=== PATIENT | male | born 1970 | race Caucasian/White ===

== ENCOUNTER 2020-09-25 19:18 | Inpatient (IN) | payer OTHER, SELFPAY ==
--- NOTE | 2020-09-25 20:46 | HP ---
CHIEF COMPLAINT: Abdominal pain. HISTORY OF PRESENT ILLNESS: This is a male who is transferred over from [facility]. He has a 1-day history of lower abdominal cramping and pain. The pain is sharp, 8/10, does not radiate, associated with nausea and no vomiting. He notes subjective fever and chills. CT scan over there revealed evidence of diverticulitis with perforation. He has scattered free air in his abdomen. He was hemodynamically stable. He denies previous history of diverticulitis. No previous history of colonoscopy. PAST MEDICAL HISTORY: He denies. PAST SURGICAL HISTORY: He denies. MEDICATIONS: Taken daily, none. ALLERGIES: NO KNOWN DRUG ALLERGIES. SOCIAL HISTORY: No smoking. No alcohol. No other drugs. He is . REVIEW OF SYSTEMS: Ten-system review of systems is otherwise negative unless described above. PHYSICAL EXAMINATION: VITAL SIGNS: His pulse is 84. His blood pressure is 130/78. His temperature is 101. HEENT: Sclerae are anicteric. Oropharynx is clear. NECK: No lymphadenopathy. CHEST: Clear. HEART: Regular rate. ABDOMEN: Soft, diffusely tender with more lower abdominal guarding. No abdominal or inguinal hernias. EXTREMITIES: No ischemia or edema to extremities. LABORATORY DATA: White blood cell count is 16, hemoglobin 14, platelet count is 225. Creatinine is 1.09. IMAGING STUDIES: CT scan reveals scattered free air diverticulitis. ASSESSMENT: Acute diverticulitis with rupture with diffuse free air, although no significant free air under the diaphragm. No significant abscess or free fluid in the abdomen. Hemodynamically stable. PLAN: Sigmoid colectomy and colostomy. He is fairly tender on exam. I suspect he has more diffuse peritonitis. We will start Marie renteria. Plan operation tomorrow. Job ID: [id number]
[2020-09-25] MEDS ORDERED: Dextrose 50% Abboject 50 ML SYRINGE SLOW IVP PRN (20:54)
[2020-09-25] MEDS ORDERED: Ketorolac Tromethamine 30 MG/ML VIAL IVP PRN (20:54)
[2020-09-25] MEDS ORDERED: Dextrose 5% in Water 1,000 ML IV PRN (20:54)
[2020-09-25] MEDS ORDERED: Acetaminophen 325 MG TAB PO PRN (20:54)
[2020-09-25] MEDS ORDERED: Promethazine HCl 25 MG/ML VIAL IM PRN (20:54)
[2020-09-25] MEDS ORDERED: hydrALAZINE 20 MG/ML VIAL SLOW IVP PRN (20:54)
[2020-09-25] MEDS ORDERED: Fentanyl 100 MCG/2 ML VIAL SLOW IVP PRN (20:55)
[2020-09-25] MEDS ORDERED: Famotidine/PF 20 mg/2ml Vial ONE (21:52)
[2020-09-25] MEDS ORDERED: Acetaminophen 325 MG TAB ONE (21:52)
[2020-09-25] MEDS ORDERED: Fentanyl 100 MCG/2 ML VIAL ONE (21:52)
[2020-09-25] MEDS: Ondansetron PF 4 MG/2 ML Vial IVP PRN (23:53)
[2020-09-25] MEDS: Piperacillin/Tazobactam 3.375 GM in Sodium Chloride 0.9% 100 ML IVPB SCH (23:54)
[2020-09-26] MEDS: Famotidine/PF 20 mg/2ml Vial SLOW IVP SCH ×3 (00:20→21:38)
[2020-09-26] MEDS: Famotidine 20 MG TAB PO SCH ×3 (00:20→19:56)
[2020-09-26] MEDS: Sodium Chloride 0.9% 1,000 ML IV SCH ×3 (00:20→18:06)
[2020-09-26 00:59] LABS: SARS-CoV-2 NAA Rapid Test Not Detected (NotDetected)
[2020-09-26 01:16] VITALS: BMI 31.1
[2020-09-26] MEDS: Fentanyl 100 MCG/2 ML VIAL SLOW IVP PRN ×2 (03:31→05:53)
[2020-09-26] MEDS: Piperacillin/Tazobactam 3.375 GM in Sodium Chloride 0.9% 100 ML IVPB SCH ×3 (05:05→18:09)
[2020-09-26] MEDS: Ondansetron PF 4 MG/2 ML Vial IVP PRN (05:10)
[2020-09-26] MEDS ORDERED: Ketorolac Tromethamine 30 MG/ML VIAL ONE (08:48)
[2020-09-26] MEDS ORDERED: PROPOFOL 200 MG/20 ML VIAL ONE (08:48)
[2020-09-26] MEDS ORDERED: Ondansetron PF 4 MG/2 ML Vial ONE (08:48)
[2020-09-26] MEDS ORDERED: Dexamethasone 20 MG/5 ML VIAL ONE (08:48)
[2020-09-26] MEDS ORDERED: Succinylcholine 200 MG/10 ml SYRINGE FS ONE (08:48)
[2020-09-26] MEDS ORDERED: Rocuronium Bromide 10 MG/ML (10ML VIAL) ONE (08:48)
[2020-09-26] MEDS ORDERED: diphenhydrAMINE 50 MG/ML VIAL ONE (08:48)
[2020-09-26] MEDS ORDERED: Glycopyrrolate 0.2 MG/ML 5 ML SYRINGE ONE (08:48)
[2020-09-26] MEDS ORDERED: Piperacillin/Tazobactam 3.375 GM VIAL ONE (11:13)
[2020-09-26] MEDS ORDERED: Fentanyl 250 MCG/5 ML VIAL ONE (11:21)
[2020-09-26] MEDS ORDERED: Meperidine HCl/PF 25 MG/ML VIAL SLOW IVP PRN (13:21)
[2020-09-26] MEDS ORDERED: Ondansetron HCl/PF 4 MG/2 ML Vial IVP PRN (13:21)
[2020-09-26] MEDS ORDERED: HYDROmorphone 2 MG/ML VIAL SLOW IVP PRN (13:21)
[2020-09-26] MEDS ORDERED: Ketorolac Tromethamine 30 MG/ML VIAL IVP PRN (13:21)
[2020-09-26] MEDS ORDERED: Fentanyl 100 MCG/2 ML VIAL ONE ×2 (14:21→14:39)
[2020-09-26] MEDS ORDERED: hydrALAZINE 20 MG/ML VIAL SLOW IVP PRN (15:19)
[2020-09-26] MEDS ORDERED: Promethazine HCl 25 MG/ML VIAL IM PRN ×3 (15:19→15:58)
[2020-09-26] MEDS ORDERED: Ondansetron PF 4 MG/2 ML Vial IVP PRN ×2 (15:19→15:48)
[2020-09-26] MEDS: D5 1/2 NS w/20 mEq KCL 1,000 ML IV SCH (15:29)
[2020-09-26] MEDS ORDERED: Naloxone HCl 0.4 mg/ml Vial IV PRN ×2 (15:48→15:58)
[2020-09-26] MEDS ORDERED: fentaNYL Citrate/PF 2,000 MCG in Sodium Chloride 0.9% 60 ML IV PRN ×2 (15:48→15:58)
[2020-09-26] MEDS ORDERED: diphenhydrAMINE 50 MG/ML VIAL IM PRN ×2 (15:48→15:58)
[2020-09-26] MEDS ORDERED: Zolpidem Tartrate 5 MG TAB PO PRN ×2 (15:48→15:58)
[2020-09-26] MEDS ORDERED: diphenhydrAMINE 50 MG/ML VIAL IVP PRN ×2 (15:48→15:58)
[2020-09-26] MEDS ORDERED: diphenhydrAMINE 25 MG CAP PO PRN ×2 (15:48→15:58)
[2020-09-26] MEDS ORDERED: Communication Order-Pharmacy FS SCH ×2 (16:00)
--- NOTE | 2020-09-26 19:07 | OP ---
DATE OF PROCEDURE: 09/26/2020 PREOPERATIVE DIAGNOSIS: Ruptured sigmoid diverticulitis. POSTOPERATIVE DIAGNOSIS: Ruptured sigmoid diverticulitis. PROCEDURE PERFORMED: Sigmoid colectomy with colostomy. ANESTHESIA: General. ESTIMATED BLOOD LOSS: 100 mL. COMPLICATIONS: None. FINDINGS: Sigmoid perforation. TECHNIQUE: The patient was taken to the operating room and laid supine on the operating room table. After general anesthetic was obtained, a Zuñiga was placed. His abdomen was shaved, prepped, and draped in a sterile fashion. A midline incision was made. Bookwalter retractor was placed. Left colon mobilized along the white line of Toldt. Left ureter found excluded from the dissection. There was locally inflammatory change in the sigmoid colon perforation. There was diffuse peritonitis. Contour stapler was fired across the lower sigmoid, reload was fired across above the area of perforation. The mesentery was taken using Impact LigaSure. There was no bleeding. Specimen was sent to Path. The abdomen was irrigated using multiple liters of warm sterile solution until returns were clear. There was some small bowel stuck to the sigmoid colon; however, there was no damage to this during the dissection. No bleeding in the abdomen. The left colon had been mobilized to allow the colostomy segment to reach up. Ellipse of skin taken out in the left abdomen and the colostomy segment brought up and held in place using a [place]. Prolene was used to ban the rectal stump. Seprafilm placed on top of the rectal stump. Seprafilm placed over the abdominal viscera. The midline fascia was closed using #1 PDS from the top and the bottom and tied in the middle. Subcutaneous tissues were irrigated. Skin was closed using skin tawanna. Telfa marcio were placed in between. The colostomy was matured in the usual fashion using 3-0 Vicryl and colostomy device was placed. The patient was en route to Recovery in stable condition. All instrument counts, needle counts, and lap counts were correct. Job ID: [id number]
[2020-09-26] MEDS: Enoxaparin Sodium 40 MG/0.4 ML SYRINGE SC SCH (19:56)
[2020-09-27] MEDS: D5 1/2 NS w/20 mEq KCL 1,000 ML IV SCH ×3 (00:10→17:55)
[2020-09-27] MEDS: Piperacillin/Tazobactam 3.375 GM in Sodium Chloride 0.9% 100 ML IVPB SCH ×4 (00:10→17:45)
[2020-09-27] MEDS: Ondansetron PF 4 MG/2 ML Vial IVP PRN ×3 (00:14→13:24)
[2020-09-27 05:37] LABS: #Lymphocytes 0.9 thou/uL (1.20-3.40); #Monocytes 0.8 thou/uL (0.11-0.59); #Neutrophils 10.6 thou/uL (1.40-6.50); %Basophils 0.1 % (0.0-1.0); %Eosinophils 0.1 % (0.0-10.0); %Lymphocytes 7.1 % (21.0-51.0); %Monocytes 6.4 % (0.0-10.0); %Neutrophils 86.4 % (42.0-75.0); Hemoglobin 11.2 g/dL (14.0-18.0); Mean Corpuscular HGB CONC 32.9 g/dL (32.0-36.0); Mean Corpuscular Hemoglobin 29.8 pg (27.0-31.0); Mean Corpuscular Volume 90.6 fL (78.0-98.0); Mean Platelet Volume 8.6 fL (7.4-10.4); Platelet Count 200 thou/uL (130-400); RBC Distribution Width 11.8 % (11.5-14.5); Red Blood Cell (RBC) Count 3.75 mill/uL (4.70-6.10); White Blood Cell (WBC) Count 12.3 thou/uL (4.8-10.8)
[2020-09-27 05:55] LABS: Anion Gap 9 mmol/L (10-20); BUN (Urea Nitrogen) 18 mg/dL (8.9-20.6); Calc. Creatinine Clearance 121 mL/min (70-130); Calcium 8.4 mg/dL (7.8-10.44); Carbon Dioxide 24 mmol/L (22-29); Chloride 107 mmol/L (98-107); Glucose 144 mg/dL (70-105); Potassium 4.3 mmol/L (3.5-5.1); Sodium 136 mmol/L (136-145)
--- NOTE | 2020-09-27 07:48 | PDOC.GSPN ---
Surgery Progress Note: Subj - Subjective Patient reports: positive flatus, tolerating liquids well, voiding w/o difficult y, pain is less, still having pain Narrative: Mr. Jaquez is a 49-year-old male who is post op day 1 from a sigmoid colectomy with colostomy. He is still having pain (11/03) but he reports that this is better than yesterday; his pain is controlled well with the pain medications. Last night he reported significant bloating, and he still is having this today, but it is better. He has ambulated some, but not much due to the pain. He is tolerating liquids well. Surgery Progress Note: Obj - Vital signs Vital signs: Vital Signs - Most Recent Temp Pulse Resp BP Pulse Ox 98.6 F 88 18 117/72 95 09/27/20 03:08 09/27/20 03:08 09/27/20 03:08 09/27/20 03:08 09/27/20 03:08 - Physical Exam General: well developed, well nourished, moderate pain Cardiovascular: regular rate and rhythm Respiratory: clear to auscultation, breath sounds present Abdomen: soft, positive bowel sounds, appropriately tender, distended Wound: dressing clean,dry,intact, healing well, ostomy/colostomy (serous fluid drainage in bag) Surgery Progress Note: Results - Labs Result Diagrams: 09/27/20 05:17 09/27/20 05:17 Lab results: Laboratory Results - last 12 hr 09/27/20 09/27/20 05:17 05:17 WBC 12.3 H RBC 3.75 L Hgb 11.2 L Hct 34.0 L MCV 90.6 MCH 29.8 MCHC 32.9 RDW 11.8 Plt Count 200 MPV 8.6 Neutrophils % 86.4 H Lymphocytes % 7.1 L Monocytes % 6.4 Eosinophils % 0.1 Basophils % 0.1 Neutrophils # 10.6 H Lymphocytes # 0.9 L Monocytes # 0.8 H Eosinophils # 0.0 Basophils # 0.0 Sodium 136 Potassium 4.3 Chloride 107 Carbon Dioxide 24 Anion Gap 9 L BUN 18 Creatinine 1.16 Estimated GFR (MDRD) 67 Glucose 144 H Calcium 8.4 Surgery Progress Note: A/P - Problem (1) Perforation of sigmoid colon due to diverticulitis Current Visit: Yes Code(s): K57.20 - DVTRCLI OF LG INT W PERFORATION AND ABSCESS W/O BLEEDING Status: Acute - Plan Plan: Mr. Jaquez is doing better. He is tolerating liquids well and his pain is well controlled with current medication. Encouraged him to ambulate as tolerated to help with the gas and bloating. Will continue current medication regimen. Addendum - Physician - Physician Attestation Date/Time: 09/27/20 2988 I personally performed or re-performed the physical examination and medical d ecision making. I have verified all student documentation or findings, including history, physical exam and/or medical decision making. Bloated with some nausea. Hasn't ambulated today. I expect some bloating given the amount of peritonitis.
[2020-09-27] MEDS: Famotidine 20 MG TAB PO SCH ×2 (09:06→20:35)
[2020-09-27] MEDS: Famotidine/PF 20 mg/2ml Vial SLOW IVP SCH (09:10)
[2020-09-27] MEDS: Ketorolac Tromethamine 30 MG/ML VIAL IVP PRN ×2 (13:19→20:35)
[2020-09-27] MEDS: Enoxaparin Sodium 40 MG/0.4 ML SYRINGE SC SCH (20:35)
[2020-09-27] MEDS ORDERED: fentaNYL Citrate/PF 2,000 MCG in Sodium Chloride 0.9% 60 ML IV PRN (22:12)
[2020-09-27] MEDS ORDERED: Naloxone HCl 0.4 mg/ml Vial IV PRN (23:07)
[2020-09-27] MEDS ORDERED: Promethazine HCl 25 MG/ML VIAL IM PRN (23:07)
[2020-09-27] MEDS ORDERED: diphenhydrAMINE 50 MG/ML VIAL IM PRN (23:07)
[2020-09-27] MEDS ORDERED: Zolpidem Tartrate 5 MG TAB PO PRN (23:07)
[2020-09-27] MEDS ORDERED: hydrALAZINE 20 MG/ML VIAL SLOW IVP PRN (23:07)
[2020-09-27] MEDS ORDERED: diphenhydrAMINE 25 MG CAP PO PRN (23:07)
[2020-09-27] MEDS ORDERED: Ondansetron PF 4 MG/2 ML Vial IVP PRN (23:07)
[2020-09-27] MEDS ORDERED: diphenhydrAMINE 50 MG/ML VIAL IVP PRN (23:07)
[2020-09-28] MEDS: Piperacillin/Tazobactam 3.375 GM in Sodium Chloride 0.9% 100 ML IVPB SCH ×5 (00:54→23:38)
[2020-09-28] MEDS: D5 1/2 NS w/20 mEq KCL 1,000 ML IV SCH ×3 (01:10→12:09)
[2020-09-28] MEDS: Ketorolac Tromethamine 30 MG/ML VIAL IVP PRN ×2 (06:13→17:57)
--- NOTE | 2020-09-28 06:57 | PDOC.GSPN ---
Surgery Progress Note: Subj - Subjective Patient reports: no new complaints, positive flatus, pain well controlled, rubén ating liquids well Narrative: Mr. Jaquez is doing well. He was started on toradol to help manage his pain and this has been going well. His bloating and pain are much better. He ambulated a lot yesterday and said that this has helped manage his bloating. He is tolerating a liquid diet well. He has noted some occasional air in his ostomy bag. No nausea or vomiting. Surgery Progress Note: Obj - Vital signs Vital signs: Vital Signs - Most Recent Temp Pulse Resp BP Pulse Ox 97.8 F 68 18 148/74 H 97 09/28/20 04:32 09/28/20 04:32 09/28/20 04:32 09/28/20 04:32 09/28/20 04:32 - Physical Exam General: no distress, well developed, well nourished Cardiovascular: regular rate and rhythm Respiratory: clear to auscultation, breath sounds present Abdomen: soft, nondistended, positive bowel sounds, appropriately tender Wound: dressing clean,dry,intact, healing well, ostomy/colostomy (red serous fluid and some air present) Surgery Progress Note: Results - Labs Result Diagrams: 09/27/20 05:17 09/27/20 05:17 Surgery Progress Note: A/P - Problem (1) Perforation of sigmoid colon due to diverticulitis Current Visit: Yes Code(s): K57.20 - DVTRCLI OF LG INT W PERFORATION AND ABSCESS W/O BLEEDING Status: Acute - Plan Plan: Mr. Jaquez is doing well. Encouraged him to continue to further ambulate and c ontinue the liquid diet as tolerated. Will continue to see if pain can appropriately be managed with oral pain medication. Will consider discharge for Sunday or . Addendum - Physician - Physician Attestation Date/Time: 09/28/20 0401 I personally performed or re-performed the physical examination and medical decision making. I have verified all student documentation or findings, including history, physical exam and/or medical decision making. Doing better today Advance to fulls restart bp meds
[2020-09-28] MEDS ORDERED: Hydrochlorothiazide 25 MG TAB PO SCH (09:00)
[2020-09-28] MEDS ORDERED: Atenolol 50 MG TAB PO SCH (09:00)
[2020-09-28] MEDS ORDERED: Lisinopril 10 MG TAB PO SCH (09:00)
[2020-09-28] MEDS: Famotidine 20 MG TAB PO SCH ×2 (09:11→19:50)
[2020-09-28] MEDS: Famotidine/PF 20 mg/2ml Vial SLOW IVP SCH ×2 (09:12→19:58)
[2020-09-28] MEDS: Hydrochlorothiazide 25 MG TAB PO SCH (19:50)
[2020-09-28] MEDS: Lisinopril 10 MG TAB PO SCH (19:50)
[2020-09-28] MEDS: Atenolol 50 MG TAB PO SCH (19:51)
[2020-09-28] MEDS: Enoxaparin Sodium 40 MG/0.4 ML SYRINGE SC SCH (19:54)
[2020-09-29] MEDS: Piperacillin/Tazobactam 3.375 GM in Sodium Chloride 0.9% 100 ML IVPB SCH ×4 (05:30→23:31)
[2020-09-29] MEDS: D5 1/2 NS w/20 mEq KCL 1,000 ML IV SCH ×2 (05:30→11:29)
[2020-09-29] MEDS: Hydrochlorothiazide 25 MG TAB PO SCH (09:09)
[2020-09-29] MEDS: Lisinopril 10 MG TAB PO SCH ×2 (09:10→19:45)
[2020-09-29] MEDS: Ketorolac Tromethamine 30 MG/ML VIAL IVP PRN (09:10)
[2020-09-29] MEDS: Atenolol 50 MG TAB PO SCH ×2 (09:10→19:46)
[2020-09-29] MEDS: Famotidine 20 MG TAB PO SCH ×2 (09:12→19:47)
[2020-09-29] MEDS: Famotidine/PF 20 mg/2ml Vial SLOW IVP SCH ×2 (09:12→19:50)
--- NOTE | 2020-09-29 09:17 | PDOC.GSPN ---
Surgery Progress Note: Subj - Subjective Patient reports: no new complaints, had a bowel movement, pain well controlled Narrative: Mr. Jaquez is doing well today. He has had a bowel movement. LLQ pain is rated at 3/10. Still using HEAD SAWYER, but not as frequently. He is ambulating without difficulty. Tolerating full liquid diet without nausea or vomiting. Denies any fever, chills, CP, SOB, cough, dysuria, blood in stool. He is urinating more frequently since restarting his home HCTZ. Surgery Progress Note: Obj - Vital signs Vital signs: Vital Signs - Most Recent Temp Pulse Resp BP Pulse Ox 97.5 F L 67 16 134/81 100 09/29/20 07:44 09/29/20 09:10 09/29/20 07:44 09/29/20 07:44 09/29/20 07:44 - Physical Exam General: no distress, well developed, well nourished Cardiovascular: regular rate and rhythm, no murmur Respiratory: clear to auscultation Abdomen: soft, positive bowel sounds, appropriately tender (LLQ) Psychiatric: memory intact, speech is normal Wound: ostomy/colostomy (pink MM visible, liquid stool present in colostomy bag) Surgery Progress Note: Results - Labs Result Diagrams: 09/27/20 05:17 09/27/20 05:17 Surgery Progress Note: A/P - Plan Plan: Mr. Irvin Jaquez is post op day #3 from a sigmoidectomy with diverting colostomy due to ruptured sigmoid diverticulitis. He is tolerating a full liquid diet, ambulating, and pain is well controlled. Will transition from HEAD SAWYER to oral pain medication. Will advance his diet. Continue on home BP medications.
[2020-09-29] MEDS ORDERED: HYDROcodone/Acetaminophen 7.5/325 mg Tablet PO PRN ×2 (09:28)
[2020-09-29] MEDS ORDERED: Fentanyl 100 MCG/2 ML VIAL SLOW IVP PRN (09:32)
[2020-09-29] MEDS ORDERED: HYDROcodone/Acetaminophen 10/325 mg Tablet PO PRN (09:45)
[2020-09-29] MEDS: traMADol HCl 50 MG TAB PO PRN (11:30)
[2020-09-29] MEDS: HYDROcodone/Acetaminophen 10/325 mg Tablet PO PRN ×2 (14:10→18:09)
[2020-09-29] MEDS: Enoxaparin Sodium 40 MG/0.4 ML SYRINGE SC SCH (19:47)
[2020-09-30] MEDS: HYDROcodone/Acetaminophen 10/325 mg Tablet PO PRN ×2 (00:41→08:00)
[2020-09-30] MEDS: Piperacillin/Tazobactam 3.375 GM in Sodium Chloride 0.9% 100 ML IVPB SCH (06:00)
[2020-09-30] MEDS: Lisinopril 10 MG TAB PO SCH (08:01)
[2020-09-30] MEDS: Famotidine 20 MG TAB PO SCH (08:20)
[2020-09-30] MEDS: Atenolol 50 MG TAB PO SCH (08:21)
[2020-09-30] MEDS: Famotidine/PF 20 mg/2ml Vial SLOW IVP SCH (08:21)
[2020-09-30] MEDS ORDERED: Hydrochlorothiazide 25 MG TAB PO SCH (09:00)
[2020-09-30] MEDS: traMADol HCl 50 MG TAB PO PRN (11:11)
[2020-09-30 11:27] VITALS: BP 141/86; TEMP 98.3
== END 2020-09-30 11:41 | disposition home or self-care (01) | DRG 329 ==
LOC: ERS 19:18 → UNDOADMIN 20:15 → SJJU 20:15 → UNDODISIN 09-27 20:32
PROVIDERS: ADMIT Surgery; ATTEND Surgery
PROC: 0DBN0ZZ Excision of Sigmoid Colon, Open Approach (ICD-10-PCS; principal; 2020-09-26)
PROC: 0D1N0Z4 Bypass Sigmoid Colon to Cutaneous, Open Approach (ICD-10-PCS; 2020-09-26)
DX: K57.20 Diverticulitis of large intestine with perforation and abscess without bleeding (principal); K65.9 Peritonitis, unspecified; Z20.822 Contact with and (suspected) exposure to COVID-19; I10 Essential (primary) hypertension; Z79.899 Other long term (current) drug therapy
CPT/HCPCS: 0240U; 36415; 80048; 85025; 88307; 96374; 96375; J1100; J1200; J1650; J1885; J2405; J2543; J2550; J2704; J3010; J3480; J3490; J7620; S0028

== ENCOUNTER 2020-12-27 10:27 | Outpatient (CLI) | payer OTHER, SELFPAY ==
[2020-12-27 12:10] LABS: #Basophils 0.1 10x3/uL (0.0-0.2); #Eosinphils 0.1 10x3/uL (0.0-0.5); #Neutrophils 7.2 10x3/uL (1.5-8.4); %Basophils 0.5 % (0.0-2.0); %Eosinophils 1.3 % (0.0-6.0); %Lymphocytes 19.5 % (18.0-47.0); %Monocytes 9.1 % (0.0-10.0); %Neutrophils 69.1 % (40.0-75.0); Hemoglobin 14.2 g/dL (13.5-17.5); Mean Corpuscular HGB CONC 33.2 g/dL (32.0-36.0); Mean Corpuscular Volume 87.3 fl (81.2-95.1); Mean Platelet Volume 11.4 fl (7.4-10.4); Platelet Count 260 10x3/uL (150-450); RBC Distribution Width 13.6 % (11.5-14.5); White Blood Cell (WBC) Count 10.4 10x3/uL (3.5-10.5)
[2020-12-27 12:22] LABS: Anion Gap 16 mmol/L (10-20); BUN (Urea Nitrogen) 18 mg/dL (8.9-20.6); Calc. Creatinine Clearance 0 mL/min (70-130); Calcium 9.6 mg/dL (7.8-10.44); Carbon Dioxide 24 mmol/L (22-29); Chloride 103 mmol/L (98-107); Glucose 107 mg/dL (70-105); Potassium 3.9 mmol/L (3.5-5.1); Sodium 139 mmol/L (136-145)
[2020-12-27 20:49] LABS: Hemoglobin A1c 5.2 % (4.0-6.0)
[2020-12-28 02:13] LABS: SARS-CoV-2 PCR by NAA Not Detected (NotDetected)
== END 2020-12-27 10:28 | disposition home or self-care (01) ==
LOC: LABBT 10:27
PROVIDERS: ATTEND Surgery
DX: Z01.818 Encounter for other preprocedural examination (principal); K57.92 Diverticulitis of intestine, part unspecified, without perforation or abscess without bleeding; K94.03 Colostomy malfunction; Z20.822 Contact with and (suspected) exposure to COVID-19
CPT/HCPCS: 80048; 83036; 85025; 87635; 93005; 93010; U0003; U0005

== ENCOUNTER 2020-12-27 10:30 | Inpatient (IN) | payer SELFPAY ==
[2020-12-29 12:39] VITALS: BMI 30.8
[2020-12-30] MEDS ORDERED: Fentanyl 100 MCG/2 ML VIAL ONE ×5 (08:30→13:26)
[2020-12-30] MEDS ORDERED: Midazolam HCl 2 mg/2 ml Vial ONE ×2 (08:30→09:14)
[2020-12-30] MEDS ORDERED: cefOXitin Sodium/Dextrose 2 GM/50 ML BAG ONE (08:40)
[2020-12-30] MEDS ORDERED: Ketorolac Tromethamine 30 MG/ML VIAL ONE (09:29)
[2020-12-30] MEDS ORDERED: Bupivacaine HCl 0.5%/Epinephrine 1:200,000/PF 30 ml Vial ONE (09:29)
[2020-12-30] MEDS ORDERED: PHENYLEPHRINE-NS 100 MCG/ML 10 ML SYRINGE ONE (09:29)
[2020-12-30] MEDS ORDERED: Ondansetron PF 4 MG/2 ML Vial ONE (09:29)
[2020-12-30] MEDS ORDERED: Dexamethasone 20 MG/5 ML VIAL ONE (09:29)
[2020-12-30] MEDS ORDERED: Rocuronium Bromide 10 MG/ML (10ML VIAL) ONE (09:29)
[2020-12-30] MEDS ORDERED: Glycopyrrolate 0.2 MG/ML 5 ML SYRINGE ONE (09:29)
[2020-12-30] MEDS ORDERED: PROPOFOL 200 MG/20 ML VIAL ONE (09:29)
[2020-12-30] MEDS ORDERED: Lidocaine 1% PF 5 ML VIAL ONE (09:29)
[2020-12-30] MEDS ORDERED: Naloxone HCl 0.4 mg/ml Vial IV PRN (13:28)
[2020-12-30] MEDS ORDERED: diphenhydrAMINE 50 MG/ML VIAL IVP PRN (13:28)
[2020-12-30] MEDS ORDERED: diphenhydrAMINE 50 MG/ML VIAL IM PRN (13:28)
[2020-12-30] MEDS ORDERED: diphenhydrAMINE 25 MG CAP PO PRN (13:28)
[2020-12-30] MEDS ORDERED: Promethazine HCl 25 MG/ML VIAL IM PRN ×2 (13:28→17:14)
[2020-12-30] MEDS ORDERED: Ondansetron PF 4 MG/2 ML Vial IVP PRN (13:28)
[2020-12-30] MEDS ORDERED: Ketorolac Tromethamine 30 MG/ML VIAL IVP PRN (13:28)
[2020-12-30] MEDS ORDERED: Communication Order-Pharmacy FS SCH (13:30)
[2020-12-30] MEDS ORDERED: Labetalol HCl 100 MG/20 ML VIAL ONE (14:38)
[2020-12-30] MEDS ORDERED: hydrALAZINE 20 MG/ML VIAL SLOW IVP PRN (17:14)
[2020-12-30] MEDS: D5 1/2 NS w/20 mEq KCL 1,000 ML IV SCH (18:46)
[2020-12-30] MEDS: Famotidine 20 MG TAB PO SCH (20:15)
[2020-12-30] MEDS: cefOXitin Sodium/Dextrose,Iso 2 GM in Premix Bag 1 BAG IVPB SCH (20:15)
[2020-12-30] MEDS: Atenolol 50 MG TAB PO SCH (20:15)
[2020-12-30] MEDS: Famotidine/PF 20 mg/2ml Vial SLOW IVP SCH (22:19)
[2020-12-31] MEDS: D5 1/2 NS w/20 mEq KCL 1,000 ML IV SCH ×4 (02:17→22:46)
[2020-12-31] MEDS: cefOXitin Sodium/Dextrose,Iso 2 GM in Premix Bag 1 BAG IVPB SCH (02:40)
[2020-12-31] MEDS: HYDROmorphone 10 mg/100 ml CADD IVPB PRN ×2 (05:55→18:49)
[2020-12-31 06:02] LABS: #Lymphocytes 1.9 thou/uL (1.20-3.40); #Monocytes 1.8 thou/uL (0.11-0.59); #Neutrophils 9.5 thou/uL (1.40-6.50); %Eosinophils 0.1 % (0.0-10.0); %Lymphocytes 14.2 % (21.0-51.0); %Monocytes 13.5 % (0.0-10.0); %Neutrophils 72.2 % (42.0-75.0); Hemoglobin 10.8 g/dL (14.0-18.0); Mean Corpuscular HGB CONC 31.9 g/dL (32.0-36.0); Mean Corpuscular Hemoglobin 28.4 pg (27.0-31.0); Mean Corpuscular Volume 89.2 fL (78.0-98.0); Mean Platelet Volume 8.5 fL (7.4-10.4); Platelet Count 261 thou/uL (130-400); RBC Distribution Width 13.2 % (11.5-14.5); White Blood Cell (WBC) Count 13.1 thou/uL (4.8-10.8)
[2020-12-31 06:16] LABS: Anion Gap 11 mmol/L (10-20); BUN (Urea Nitrogen) 16 mg/dL (8.9-20.6); Calc. Creatinine Clearance 126 mL/min (70-130); Calcium 8.2 mg/dL (7.8-10.44); Carbon Dioxide 27 mmol/L (22-29); Chloride 99 mmol/L (98-107); Glucose 135 mg/dL (70-105); Potassium 4.6 mmol/L (3.5-5.1); Sodium 132 mmol/L (136-145)
[2020-12-31] MEDS: Famotidine/PF 20 mg/2ml Vial SLOW IVP SCH ×2 (08:35→20:05)
[2020-12-31] MEDS: Atenolol 50 MG TAB PO SCH ×2 (08:35→20:03)
[2020-12-31] MEDS: Lisinopril 10 MG TAB PO SCH (08:35)
[2020-12-31] MEDS: Famotidine 20 MG TAB PO SCH ×2 (08:36→20:04)
[2020-12-31] MEDS: Enoxaparin Sodium 40 MG/0.4 ML SYRINGE SC SCH (13:57)
[2021-01-01] MEDS: Ondansetron PF 4 MG/2 ML Vial IVP PRN ×3 (00:11→16:26)
[2021-01-01] MEDS: D5 1/2 NS w/20 mEq KCL 1,000 ML IV SCH ×2 (08:54→16:25)
[2021-01-01] MEDS: Atenolol 50 MG TAB PO SCH ×2 (08:55→21:07)
[2021-01-01] MEDS: Famotidine 20 MG TAB PO SCH ×2 (08:55→21:08)
[2021-01-01] MEDS: Lisinopril 10 MG TAB PO SCH (08:55)
[2021-01-01] MEDS: Enoxaparin Sodium 40 MG/0.4 ML SYRINGE SC SCH (09:00)
[2021-01-01] MEDS: Famotidine/PF 20 mg/2ml Vial SLOW IVP SCH ×2 (09:01→21:08)
[2021-01-01] MEDS: HYDROmorphone 10 mg/100 ml CADD IVPB PRN (10:21)
[2021-01-02] MEDS: HYDROmorphone 10 mg/100 ml CADD IVPB PRN ×2 (00:18→16:37)
[2021-01-02] MEDS: D5 1/2 NS w/20 mEq KCL 1,000 ML IV SCH ×3 (04:09→15:29)
[2021-01-02 06:33] LABS: #Eosinphils 0.4 thou/uL (0.0-0.7); #Lymphocytes 2.4 thou/uL (1.20-3.40); #Monocytes 1.3 thou/uL (0.11-0.59); #Neutrophils 5.5 thou/uL (1.40-6.50); %Basophils 0.5 % (0.0-1.0); %Eosinophils 4.3 % (0.0-10.0); %Neutrophils 57.2 % (42.0-75.0); Hemoglobin 8.6 g/dL (14.0-18.0); Mean Corpuscular HGB CONC 32.9 g/dL (32.0-36.0); Mean Corpuscular Hemoglobin 29.1 pg (27.0-31.0); Mean Corpuscular Volume 88.3 fL (78.0-98.0); Mean Platelet Volume 8.7 fL (7.4-10.4); Platelet Count 252 thou/uL (130-400); RBC Distribution Width 12.9 % (11.5-14.5); Red Blood Cell (RBC) Count 2.95 mill/uL (4.70-6.10); White Blood Cell (WBC) Count 9.7 thou/uL (4.8-10.8)
[2021-01-02 06:49] LABS: Anion Gap 9 mmol/L (10-20); BUN (Urea Nitrogen) 9 mg/dL (8.9-20.6); Calc. Creatinine Clearance 141 mL/min (70-130); Calcium 9.3 mg/dL (7.8-10.44); Carbon Dioxide 27 mmol/L (22-29); Chloride 99 mmol/L (98-107); Glucose 110 mg/dL (70-105); Potassium 4.2 mmol/L (3.5-5.1); Sodium 131 mmol/L (136-145)
[2021-01-02] MEDS: Lisinopril 10 MG TAB PO SCH (08:55)
[2021-01-02] MEDS: Atenolol 50 MG TAB PO SCH ×2 (08:55→21:41)
[2021-01-02] MEDS: Famotidine 20 MG TAB PO SCH ×2 (08:56→21:41)
[2021-01-02] MEDS: Famotidine/PF 20 mg/2ml Vial SLOW IVP SCH ×2 (10:06→21:39)
[2021-01-02] MEDS: Enoxaparin Sodium 40 MG/0.4 ML SYRINGE SC SCH (10:07)
[2021-01-02] MEDS ORDERED: Acetaminophen 325 MG TAB PO PRN ×2 (16:22)
[2021-01-02] MEDS ORDERED: HYDROcodone/Acetaminophen 7.5/325 mg Tablet PO PRN (16:22)
[2021-01-02] MEDS ORDERED: traMADol HCl 50 MG TAB PO PRN ×2 (16:22)
[2021-01-02] MEDS ORDERED: Morphine 4 MG/ML VIAL SLOW IVP PRN ×2 (16:22→16:31)
[2021-01-03] MEDS: D5 1/2 NS w/20 mEq KCL 1,000 ML IV SCH ×2 (01:05→08:12)
[2021-01-03] MEDS: HYDROcodone/Acetaminophen 7.5/325 mg Tablet PO PRN ×2 (03:57→08:06)
[2021-01-03 05:38] LABS: #Eosinphils 0.5 thou/uL (0.0-0.7); #Lymphocytes 2.1 thou/uL (1.20-3.40); #Monocytes 1.3 thou/uL (0.11-0.59); #Neutrophils 5.1 thou/uL (1.40-6.50); %Basophils 0.4 % (0.0-1.0); %Eosinophils 5.2 % (0.0-10.0); %Lymphocytes 23.7 % (21.0-51.0); %Monocytes 14.6 % (0.0-10.0); %Neutrophils 56.1 % (42.0-75.0); Hemoglobin 8.8 g/dL (14.0-18.0); Mean Corpuscular Hemoglobin 30.2 pg (27.0-31.0); Mean Corpuscular Volume 88.6 fL (78.0-98.0); Mean Platelet Volume 8.4 fL (7.4-10.4); Platelet Count 286 thou/uL (130-400); RBC Distribution Width 12.8 % (11.5-14.5); Red Blood Cell (RBC) Count 2.92 mill/uL (4.70-6.10)
[2021-01-03] MEDS: Famotidine 20 MG TAB PO SCH (08:05)
[2021-01-03] MEDS: Atenolol 50 MG TAB PO SCH (08:05)
[2021-01-03] MEDS: Lisinopril 10 MG TAB PO SCH (08:06)
[2021-01-03] MEDS: Enoxaparin Sodium 40 MG/0.4 ML SYRINGE SC SCH (08:11)
[2021-01-03] MEDS: Famotidine/PF 20 mg/2ml Vial SLOW IVP SCH (08:12)
[2021-01-03 08:28] VITALS: TEMP 98.7
[2021-01-03 12:02] VITALS: BP 103/67
== END 2021-01-03 13:14 | disposition home or self-care (01) | DRG 330 ==
LOC: SURG A 12-30 06:41 → EDSTATUS 12-30 10:30 → SJJU 12-30 15:36
PROVIDERS: ADMIT Surgery; ATTEND Surgery
PROC: 0DBP0ZZ Excision of Rectum, Open Approach (ICD-10-PCS; principal; 2020-12-31)
PROC: 0DBE0ZZ Excision of Large Intestine, Open Approach (ICD-10-PCS; 2020-12-31)
DX: K94.03 Colostomy malfunction (principal); D62 Acute posthemorrhagic anemia; I10 Essential (primary) hypertension; Y83.8 Other surgical procedures as the cause of abnormal reaction of the patient, or of later complication, without mention of misadventure at the time of the procedure
CPT/HCPCS: 36415; 80048; 85025; 86850; 86900; 86901; 88304; 88307; 88309; J0694; J1100; J1650; J1885; J2250; J2405; J2704; J3010; J3480; S0028